=== PATIENT | female | born 1955 | race Caucasian/White ===

== ENCOUNTER 2020-10-29 20:58 | Emergency (ER) | payer OTHER ==
[~2020-10-29] VITALS: Ht 175.3 cm; Wt 59.1 kg
[2020-10-29] MEDS ORDERED: SODIUM CHLORIDE FLUSH 10ML SYR IVF ONE (21:30)
--- NOTE | 2020-10-29 21:37 | NUR ---
PT. C/O UPPER CHEST PAIN AND RAPID HEART RATE ALL DAY. PAIN WORSE WITH LAYING DOWN. ASSOCIATED WITH SOB. DENIES PAST MEDICAL HX. PIV PLACED AND LABS DRAWN. PT PLACED ON PULSE OX AND CARDIAC MONITORS. VSS. CALL LIGHT IN REACH
[2020-10-29] MEDS ORDERED: ONDANSETRON 2MG/ML, 2ML ONE (21:39)
[2020-10-29] MEDS ORDERED: MORPHINE SULFATE 4 MG/ML, 1ML ONE ×2 (21:39→22:50)
[2020-10-29] MEDS: MORPHINE SULFATE 4 MG/ML, 1ML IVPush PRN ×2 (21:46→22:54)
[2020-10-29] MEDS ORDERED: ONDANSETRON 2MG/ML, 2ML IVPush ONE (22:00)
[2020-10-29 22:01] LABS: BASOPHILS % (AUTO) 0 % (0-1); EOSINOPHILS % (AUTO) 1 % (1-7); LYMPHOCYTES % (AUTO) 9 % (22-44); MEAN CORPUSCULAR HGB CONC 34.3 g/dL (32.4-35.8); MEAN PLATELET VOLUME 7.5 fL (7.4-10.4); MONOCYTES % (AUTO) 11 % (2-9); NEUTROPHILS % (AUTO) 79 % (42-75); PLATELET COUNT 188 x10^3/uL (130-400); RED BLOOD COUNT 4.53 x10^6/uL (3.82-5.3); RED CELL DISTRIBUTION WIDTH 13.3 % (9.6-15.2)
[2020-10-29 22:03] LABS: MD NO
[2020-10-29 22:09] LABS: ALANINE AMINOTRANSFERASE 17 U/L (12-78); ALBUMIN 3.4 g/dL (3.4-5.0); ANION GAP 5 mmol/L (5-15); CALCIUM 9.1 mg/dL (8.5-10.1); CHLORIDE 103 mmol/L (98-107)
[2020-10-29 22:19] LABS: ALKALINE PHOSPHATASE 60 U/L (45-117); BILIRUBIN,TOTAL 0.7 mg/dL (0.2-1.0); T4 (THYROXINE) 7.9 mcg/dL (4.8-13.9); TROPONIN I < 0.015 ng/mL (0.000-0.045)
[2020-10-29] MEDS ORDERED: OMNIPAQUE 350 MG/ML, 100ML BOTTLE ONE (22:30)
--- NOTE | 2020-10-29 22:42 | NUR ---
PT BACK FROM CT. PT STILL HAS PAIN IN CHEST. VSS. WILL REMEDICATE FOR PAIN
--- NOTE | 2020-10-29 23:23 | NUR ---
pain improved with morphine, pt given water. ok per ashtyn. elizabeth. to re evaluate. call light in reach
[2020-10-29 23:44] VITALS: BP 136/80
--- NOTE | 2020-10-29 23:44 | NUR ---
Patient given discharge instructions and they have confirmed that they understand the instructions. Patient ambulatory with steady gait.
== END 2020-10-29 23:47 | disposition home or self-care (01) ==
LOC: ED 23:00
DX: R07.1 Chest pain on breathing (principal); R06.00 Dyspnea, unspecified; R00.2 Palpitations; I44.4 Left anterior fascicular block; Z79.01 Long term (current) use of anticoagulants
CPT/HCPCS: 36415; 71045; 71275; 80053; 83735; 83880; 84436; 84443; 84484; 85025; 85379; 93005; 96374; 96375; 96376; 99285; J2270; J2405; Q9967